=== PATIENT | female | born 1995 | race Caucasian/White ===

== ENCOUNTER 2020-06-12 06:36 | Observation (INO) | END 2020-06-12 07:25 | disposition left against medical advice (07) | LOC: 1NENULAB | PROVIDERS: ADMIT Student in an Organized Health Care Education/Training Program; ATTEND Student in an Organized Health Care Education/Training Program ==

== ENCOUNTER 2020-08-07 19:15 | Inpatient (IN) ==
[~2020-08-07 19:15] MED LIST: *HR* LORazepam 2 MG/ML VIAL IVP ONE; *HR* Oxytocin 10 UNIT/ML VIAL IM ONE
[2020-08-07] MEDS ORDERED: Ibuprofen 600 MG TABLET PO PRN (19:37)
[2020-08-07] MEDS ORDERED: Acetaminophen 325 MG TABLET PO PRN (19:37)
[2020-08-07] MEDS ORDERED: Rho Immune Globulin 1,500 UNIT SYRINGE IM PRN (19:37)
[2020-08-07] MEDS ORDERED: Measles/Mumps/Rubella Vacc 0.5 ML VIAL SQ PRN (19:37)
[2020-08-07] MEDS ORDERED: Oxytocin 20 units/ LR 1000 mL 20 UNIT/1,000 ML BAG IVC SCH (19:45)
[2020-08-07] MEDS ORDERED: Ringers Solution, Lactated 1,000 ML IVC ONE (20:35)
[2020-08-07] MEDS ORDERED: *HR* LORazepam 2 MG/ML VIAL IM STA ×2 (21:29→22:25)
[2020-08-07] MEDS ORDERED: Haloperidol Lactate 5 MG/ML VIAL IM PRN (22:23)
[2020-08-07 23:49] VITALS: BP 104/64
[2020-08-08] MEDS ORDERED: Prenatal Vit/FA 1 EACH TABLET PO SCH (09:00)
[2020-08-08] MEDS ORDERED: *HR* LORazepam 2 MG/ML VIAL IM STA ×2 (11:51→18:23)
[2020-08-08] MEDS: Haloperidol Lactate 5 MG/ML VIAL IM PRN ×2 (12:19→18:39)
[2020-08-08 13:23] LABS: Basophils # 0.1 K/mcL (0.0-0.2); Basophils % 0.5 %; Eosinophils % 0.4 %; Hematocrit 31.8 % (35.3-44.9); Hemoglobin 10.2 g/dL (11.5-15.4); Immature Granulocytes % 0.3 % (0-4); Lymphocytes # 1.6 K/mcL (0.6-4.6); Lymphocytes % 15.1 %; Mean Corpuscular HGB Conc 32.1 g/dL (31.6-35.5); Mean Corpuscular Hemoglobin 29.1 pg (28.0-33.3); Mean Corpuscular Volume 90.9 fL (83.0-100.0); Mean Platelet Volume 11.5 fL (9.4-12.4); Monocytes # 0.6 K/mcL (0.0-1.3); Monocytes % 5.4 %; Neutrophils # 8.5 K/mcL (1.6-8.9); Platelet Count 250 K/mcL (140-400); Red Cell Distribution Width 13.7 % (11.5-14.5); Segmented Neutrophils % 78.3 %; White Blood Count 10.8 K/mcL (4.3-11.1)
[2020-08-08 13:44] LABS: BUN/Creatinine Ratio 12 (6-26); Blood Urea Nitrogen 7 mg/dL (6-20); Calcium 9.3 mg/dL (8.6-10.3); Carbon Dioxide 21 mEq/L (23-29); Chloride 108 mEq/L (98-107); Glucose 102 mg/dL (70-105); Osmolality,Calculated 282 (280-300); Sodium 137 mEq/L (136-145); eGFR For African Americans > 60 (> 60); eGFR For Non-African Americans > 60 (> 60)
[2020-08-08 13:54] LABS: Influenza A PCR Negative (Negative); Influenza B PCR Negative (Negative); Resp. Syncytial Virus PCR Negative (Negative)
[2020-08-08 13:58] LABS: SARS-CoV-2 by PCR (In House) Negative (Negative)
[2020-08-08 18:41] LABS: Amphetamine Screen,Urine Negative ng/mL (Cutoff=1000); Barbiturate Screen,Urine Negative ng/mL (Cutoff=200); Benzodiazepines Screen,Urine Negative ng/mL (Cutoff=200); Cannabinoid Screen,Urine Negative ng/mL (Cutoff = 50); Cocaine Screen,Urine Negative ng/mL (Cutoff= 300); Opiate Screen,Urine Negative ng/mL (Cutoff=300); Phencyclidine Screen,Urine Negative ng/mL (Cutoff=25)
== END 2020-08-08 20:50 | DRG 561 ==
LOC: 1NENULAB 19:15
PROVIDERS: ADMIT Student in an Organized Health Care Education/Training Program; ATTEND Student in an Organized Health Care Education/Training Program